=== PATIENT | male | born 1960 | race Caucasian/White ===

== ENCOUNTER 2017-04-08 22:47 | Inpatient (IN) | payer OTHER ==
[~2017-04-08] VITALS: Ht 190.5 cm; Wt 100.0 kg
[~2017-04-08 22:47] MED LIST: ASPI-99 PO; CYCL-36 PO; CYCL5TAB PO; DICL75 PO; LORT7.5T3 PO; METH2.5 PO; [UNRECOGNIZED DRUG - REMARK]
[2017-04-08 22:59] VITALS: BP 126/78; PULSE 90; RESP 20; TEMP 98; O2SAT 97
[2017-04-09] VITALS (9 sets, daily range): BP systolic 128–156; BP diastolic 63–96; PULSE 69–90; RESP 16–18; TEMP 97.2–99.7; O2SAT 93–98
[2017-04-09] MEDS ORDERED: METH0.35 (00:10)
[2017-04-09] MEDS ORDERED: CYCL10TA PO (00:10)
[2017-04-09] MEDS ORDERED: oxyCODONE/ACETAMINOPHEN 5 MG/325 MG TAB PO ONE ×2 (00:45→05:15)
[2017-04-09] MEDS ORDERED: KETOROLAC TROMETHAMINE 60 MG/2 ML (IM) VIAL IM ONE (00:45)
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
[2017-04-09] MEDS ORDERED: BISACODYL 10 MG SUPP RECTAL PRN (07:00)
[2017-04-09] MEDS ORDERED: ONDANSETRON HCL 4 MG/2 ML VIAL IVP PRN (07:00)
[2017-04-09] MEDS ORDERED: SENNOSIDES 8.6 MG TAB PO PRN (07:00)
[2017-04-09] MEDS ORDERED: MAGNESIUM HYDROXIDE SUSP 30 ML CUP PO PRN (07:00)
[2017-04-09] MEDS ORDERED: SODIUM CHLORIDE 0.9% FLUSH 10 ML FLUSH IV FLUSH PRN (07:00)
[2017-04-09] MEDS ORDERED: ACETAMINOPHEN 325 MG TAB PO PRN (07:00)
[2017-04-09] MEDS ORDERED: ACETAMINOPHEN/HYDROcodone 325 MG/5 MG TAB PO PRN (07:00)
[2017-04-09] MEDS ORDERED: LACTULOSE SYRUP 20 GM/30 ML CUP PO PRN (07:00)
[2017-04-09 07:33] LABS: AUTOMATED NEUTROPHIL # 7.4 TH/MM3 (1.8-7.7); BASOPHIL % 0.5 % (0.0-2.0); EOSINOPHIL # 0.1 TH/MM3 (0-0.4); EOSINOPHIL % 0.9 % (0.0-4.0); HEMATOCRIT 47.3 % (39.0-51.0); HEMO FLAGS DIFF FINAL; LYMPH % 4.5 % (9.0-44.0); LYMPHOCYTE # 0.4 TH/MM3 (1.0-4.8); MEAN CELL VOLUME 98.6 FL (80.0-100.0); MEAN CORPUSCULAR HEMOGLOBIN 32.3 PG (27.0-34.0); MEAN CORPUSCULAR HGB CONC 32.8 % (32.0-36.0); MONO % 6.9 % (0.0-8.0); NEUT % 87.2 % (16.0-70.0); PLATELET COUNT 293 TH/MM3 (150-450); RED BLOOD COUNT 4.79 MIL/MM3 (4.50-5.90); RED CELL DISTRIBUTION WIDTH 12.8 % (11.6-17.2); WHITE BLOOD COUNT 8.5 TH/MM3 (4.0-11.0)
[2017-04-09 07:43] LABS: CHLORIDE 105 MEQ/L (98-107); POTASSIUM 4.1 MEQ/L (3.5-5.1); SODIUM (NA) 139 MEQ/L (136-145)
[2017-04-09 07:46] LABS: ANION GAP 8 MEQ/L (5-15); BICARBONATE 26.1 MEQ/L (21.0-32.0)
[2017-04-09 07:47] LABS: BLOOD UREA NITROGEN 13 MG/DL (7-18)
[2017-04-09 07:49] LABS: ALT (GPT) 40 U/L (12-78)
[2017-04-09 07:50] LABS: AST (GOT) 27 U/L (15-37); GLOMERULAR FILTRATION RATE 93 ML/MIN (>89)
[2017-04-09 07:52] LABS: ALKALINE PHOSPHATASE 96 U/L (45-117)
[2017-04-09] MEDS ORDERED: MORPHINE SULFATE 2 MG/ML INJ IV PUSH PRN ×3 (08:00→18:15)
[2017-04-09] MEDS: SODIUM CHLOR 0.9% 1000 ML INJ 1,000 ML IV SCH ×2 (08:38→12:05)
[2017-04-09] MEDS: DOCUSATE SODIUM 50 MG/SENNA 8.6 MG TAB PO SCH ×2 (09:00→21:00)
[2017-04-09] MEDS: SODIUM CHLORIDE 0.9% FLUSH 10 ML FLUSH IV FLUSH SCH ×2 (09:00→21:39)
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
[2017-04-09] MEDS: NICOTINE 14 MG/24 HR PATCH T-DERMAL SCH (18:15)
[2017-04-09] MEDS ORDERED: NALOXONE HCL 0.4 MG/ML AMP IV PUSH PRN (18:15)
[2017-04-09] MEDS ORDERED: POVIDONE IODINE 5% (ANTISEPSIS KIT) 4 APPLICATIONS EACH NARE PRN (22:45)
[2017-04-09] MEDS ORDERED: METOPROLOL TARTRATE 25 MG TAB PO PRN (22:45)
[2017-04-09] MEDS ORDERED: CHLORHEXIDINE GLUCONATE 2 % 1 PACK (2 CLOTHS) TOPICAL PRN (22:45)
[2017-04-09] MEDS ORDERED: SODIUM CHLORID 0.9% 500 ML IV PRN (22:45)
[2017-04-09] MEDS ORDERED: LACTATED RINGER'S 1000 ML IV PRN (22:45)
[2017-04-10] VITALS: BP 126/72; PULSE 75; RESP 17; TEMP 97.7; O2SAT 97
[2017-04-10] MEDS: SODIUM CHLOR 0.9% 1000 ML INJ 1,000 ML IV SCH ×2 (02:48→12:48)
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
[2017-04-10 08:00] VITALS: BP 137/74; PULSE 76; RESP 18; TEMP 95.7; O2SAT 97
[2017-04-10] MEDS: SODIUM CHLORIDE 0.9% FLUSH 10 ML FLUSH IV FLUSH SCH (09:00)
[2017-04-10] MEDS ORDERED: REMOVE OLD PATCH T-DERMAL SCH (09:00)
[2017-04-10] MEDS ORDERED: NICOTINE 14 MG/24 HR PATCH T-DERMAL SCH (09:00)
[2017-04-10] MEDS: NICOTINE 14 MG/24 HR PATCH T-DERMAL SCH (09:02)
[2017-04-10] MEDS: DOCUSATE SODIUM 50 MG/SENNA 8.6 MG TAB PO SCH (09:03)
--- NOTE | 2017-04-10 10:03 | HHI.PR ---
Subjective Remarks He is at the margin of the bed, says pain is better controlled and he wants to go home today. His did get a wheelchair for him. Denies nausea, diarrhea or constipation. Objective Vitals Vital Signs Date Time Temp Pulse Resp B/P (MAP) Pulse Ox O2 Delivery O2 Flow Rate FiO2 04/10/17 08:00 95.7 76 18 137/74 (95) 97 04/10/17 00:00 97.7 75 17 126/72 (90) 97 04/09/17 20:00 98.1 76 16 129/63 (85) 97 04/09/17 16:52 97.8 75 18 136/77 (96) 97 04/09/17 12:14 97.4 74 18 144/76 (98) 97 I/O 04/09/17 04/09/17 04/09/17 04/10/17 04/10/17 04/10/17 07:00 15:00 23:00 07:00 15:00 23:00 Intake Total 720 ml 120 ml Output Total 525 ml 750 ml Balance 195 ml -630 ml Intake Oral 720 ml 120 ml Output Urine Total 525 ml 750 ml # Voids 1 # Bowel Movements 1 Result Diagram: 04/09/17 0708 04/09/17 0708 Imaging Last Impressions Lower Extremity CT 04/09/17 0000 Signed Impressions: Service Date/Time: Sunday, April 09, 2017 02:34 - CONCLUSION: Extensive minimally displaced fracturing of the tibial plateau Aurelio Sanders MD Knee X-Ray 04/09/17 0000 Signed Impressions: Service Date/Time: Sunday, April 09, 2017 01:20 - CONCLUSION: Fractures as described. CT recommended for more definitive evaluation as clinically appropriate. Aurelio Sanders MD Hip and Pelvis X-Ray 04/09/17 0000 Signed Impressions: Service Date/Time: Sunday, April 09, 2017 01:20 - CONCLUSION: Arthritic changes. No acute bony injury Aurelio Sanders MD Objective Remarks GENERAL: This is a well-nourished, well-developed patient, in no apparent distress.alert and oriented 3. CARDIOVASCULAR: Regular rate and rhythm without murmurs, gallops, or rubs. RESPIRATORY: Clear to auscultation. Breath sounds equal bilaterally. No wheezes , rales, or rhonchi. GASTROINTESTINAL: Abdomen soft, non-tender, nondistended. No hepato-splenomegaly , or palpable masses. No guarding. MUSCULOSKELETAL: Extremities without clubbing, cyanosis, or edema. right knee in brace. Peripheral perfusion and sensation intact. Left hip limited range of motion secondary to hip pain.patient did indicate discomfort at left groin. Started to have what appeared to be an inguinal hernia which was easily reduced , however continue to have hip pain with abduction. NEUROLOGICAL: Awake and alert. Cranial nerves II through XII intact. Motor and sensory grossly within normal limits. Five out of 5 muscle strength in all muscle groups. Normal speech. A/P Assessment and Plan Right tibial plateau fracture. Management as per orthopedic surgery. Patient opts for surgery. Tobacco abuse. Cessation counseling provided. We'll provide nicotine patch as requested. History of rheumatoid arthritis. We'll hold methotrexate at this time. Left inguinal hernia. Patient has history of bilateral inguinal hernia repair. This was easily reduced on exam. Discussed with the patient that this is not an emergency, however discussed the warning signs of incarcerated hernia. DVT prophylaxis as per surgical service. Discussed Condition With Patient, nurse, at bedside Discharge Planning DC home in stable condition to follow up as OP with PCP and consultants Meds per med reconciliations Activity: NON weight bearing on affected leg, to follow up with ortho as OP Diet healthy regular diet Blanche Pruett MD Apr 10, 2017 10:03
[2017-04-10 12:00] VITALS: BP 120/72; PULSE 93; RESP 18; TEMP 98; O2SAT 96
[2017-04-10] MEDS ORDERED: NICO14DI23 T-DERMAL (12:14)
[2017-04-10] MEDS ORDERED: PERI PO (12:14)
[2017-04-10] MEDS ORDERED: GETGO ROLLING W1 MI1 (12:17)
--- NOTE | 2017-04-10 12:18 | HHI.DCPOC ---
Discharge Care Plan Goals to Promote Your Health * To prevent worsening of your condition and complications * To maintain your health at the optimal level Directions to Meet Your Goals Take your medications as prescribed Follow your dietary instruction Follow activity as directed Keep your appointments as scheduled Take your immunizations and boosters as scheduled If your symptoms worsen call your PCP, if no PCP go to Urgent Care Center or Emergency Room Smoking is Dangerous to Your Health. Avoid second hand smoke Call the 24-hour hour crisis hotline for domestic abuse at Blanche Pruett MD Apr 10, 2017 12:18
[2017-04-10] MEDS ORDERED: OXYC1CAP PO (12:27)
--- NOTE | 2017-04-10 16:57 | EKG ---
Date Performed: 04/10/2017 Time Performed: 05:54:46 PTAGE: 56 years EKG: Sinus arrhythmia Normal ECG NO PREVIOUS TRACING Compared to prior tracing no significant change DOCTOR: Jennifer Cotter Interpretating Date/Time 04/10/2017 16:55:47
== END 2017-04-10 14:56 | disposition home or self-care (01) | DRG 563 ==
LOC: PHED 22:47 → PHEDA 04-09 06:54 → N06B 04-09 09:25
PROVIDERS: ADMIT Hospitalist; ATTEND Hospitalist
DX: S82.141A Displaced bicondylar fracture of right tibia, initial encounter for closed fracture (principal); K40.90 Unilateral inguinal hernia, without obstruction or gangrene, not specified as recurrent; M06.9 Rheumatoid arthritis, unspecified; V28.0XXA Motorcycle driver injured in noncollision transport accident in nontraffic accident, initial encounter; Y92.481 Parking lot as the place of occurrence of the external cause; Z72.0 Tobacco use
CPT/HCPCS: 73502; 73564; 73700; 80053; 85025; 85610; 93005; 96372; J1885; J2270; J7030; L1830